=== PATIENT | male | born 1970 | race Caucasian/White ===

== ENCOUNTER 2019-12-17 08:16 | Emergency (ER) | payer OTHER, SELFPAY ==
[2019-12-17 08:32] VITALS: BP 128/60; PULSE 54; RESP 18; TEMP 36.6; O2SAT 100
--- NOTE | 2019-12-17 08:39 | ED.BURNSMOKE ---
HPI - Burn/Smoke Inhalation General Chief complaint: Burn/Smoke Inhalation Stated complaint: burn right forearm Time Seen by Provider: 12/17/19 08:40 Source: patient History of Present Illness HPI Narrative: Patient presents with a burn to his right forearm that he states he was at work 3 days ago and had grease dripped down his right forearm. Patient states he took 2 days off from work and instructed him that they would be back to work today but does not feel that he is able to go back to work today. Skin is intact no redness no drainage to area patient states he has been taking ibuprofen for pain and discomfort but has not applied any antibiotic ointment or any dressings to his forearm. Complaint: burn Onset (ago): day(s) (two) Type of Exposure: hot liquid Smoke Inhalation: none Location - Extremities: Right: forearm (22 cm burn first degree) Related Data Home Medications Medication Instructions Recorded Confirmed No Home Medications 12/17/19 12/17/19 Allergies Allergy/AdvReac Type Severity Reaction Status Date / Time No Known Allergies Allergy Verified 12/17/19 08:37 Review of Systems Review of Systems: Narrative: CONSTITUTIONAL: Denies fever, chills, or sweats. EYES: Denies visual changes, redness, or discharge. ENT: Denies rhinorrhea, congestion, sore throat, or otalgia. CARDIOVASCULAR: Denies chest pain, palpitations, or edema. RESPIRATORY: Denies cough or dyspnea. GASTROINTESTINAL: Denies abdominal pain, nausea, vomiting, or diarrhea. GENITOURINARY: Denies dysuria or hematuria. SKIN: Denies rash or itching. Burn to right forearm that he states happened at work 2 days ago when he had hot grease dripped down the inner side of his right forearm no drainage no streaking MUSCULOSKELETAL: Denies back pain, joint pain, or myalgia. NEUROLOGIC: Denies headache, numbness, or weakness. PSYCHIATRIC: Denies anxiety or depression. PMFSH Comments At time of signature, agree with nursing past medical, surgical, social and family history. There is no relevant family history pertinent to the presenting complaint Exam Narrative: Exam Narrative: GENERAL: Well-appearing, well-nourished, and in no acute distress. HEAD: Normocephalic, atraumatic. EYES: PERRLA and EOMI. ENT: Nares clear, no rhinorrhea or epistaxis. Mucous membranes moist. NECK: Supple. CHEST: Clear to auscultation. No respiratory distress. HEART: Regular rate and rhythm. No murmur heard. Normal peripheral pulses. ABDOMEN: Soft, nontender, nondistended, normal active bowel sounds. EXTREMITIES: Normal range of motion. No edema. SKIN: Warm, dry, no rash. 22 cm area first-degree burn to palmar side of right forearm no drainage no streaking NEURO: No focal deficits. Alert and oriented x3. Cumming Coma Scale Eye Opening: Spontaneous 4 Sacha Coma Scale Motor: Obeys Commands 6 Sacha Coma Scale Verbal: Oriented 5 Sacha Coma Scale Total 15 Skin: Other: 22 cm first-degree burn to palmar side of right forearm Extrem: Elbow/forearm/wrist images: 1. first degree burn 2. first degree burn Course Vital Signs Vital signs: Vital Signs Temperature 36.6 C 12/17/19 08:32 Pulse Rate 54 L 12/17/19 08:32 Respiratory Rate 18 12/17/19 08:32 Blood Pressure 128/60 12/17/19 08:32 Pulse Oximetry 100 12/17/19 08:32 Temperature 36.6 C 12/17/19 08:32 Pulse Rate 54 L 12/17/19 08:32 Respiratory Rate 18 12/17/19 08:32 Blood Pressure 128/60 12/17/19 08:32 Pulse Oximetry 100 12/17/19 08:32 Procedures Burn Care/Dressing Burn care #1: Date: 12/17/19 Time: 08:59 Location: right forarm Debridement Necessary: No (22cm first degree burn to right forearm ) Type of Dressing: Silver Sulfadiazine Neurovascular Functions Intact After Dressing Application: Yes Patient Tolerated Procedure: well (no redness , no edema, no streaking and no drainage no concern for infection) Critical Care Time Cri
[2019-12-17] MEDS: SILVER SULFADIAZINE 1% CR 50 GM JAR (*BKC) 1 APPLIC TOPICAL (08:53)
== END 2019-12-17 09:03 | disposition home or self-care (01) ==
PROVIDERS: Emergency Provider Nurse Practitioner Family
DX: T22.111A Burn of first degree of right forearm, initial encounter (principal); X10.2XXA Contact with fats and cooking oils, initial encounter; Y99.0 Civilian activity done for income or pay
CPT/HCPCS: 16000; 99213; A9270; G0463

== ENCOUNTER 2023-12-11 07:41 | Emergency (ER) | payer OTHER, SELFPAY ==
--- NOTE | ~2023-12-11 | CT_ITS ---
EXAMINATION: CT lumbar spine wo con DATE: 12/11/2023 10:21 INDICATION: Low back pain. TECHNIQUE: Computed tomography (CT) of the lumbar spine was performed without intravenous contrast. A utomated exposure control and iterative reconstruction technique were employed. The dose-length produ ct was 778.34 mGy-cm. COMPARISON: None FINDINGS: There is a 3.8 cm mass in right adrenal gland containing fat, consistent with a myelolipoma . There is 4 degrees levocurvature of lumbar spine. There is mild chronic anterior wedging of T12 and L1 vertebral bodies. There is mildly decreased disc height at L2-L3 and L4-L5 and severely decreased disc height at L5-S1. The following disc levels are specifically discussed: L1-L2: The disc does not extend beyond the endplate margin. There is severe bilateral facet joint ost eoarthritis. There is no neural foraminal stenosis. There is no central canal stenosis. L2-L3: The disc is bulging. There is severe bilateral facet joint osteoarthritis. There is mild bilat eral neural foraminal stenosis. There is mild central canal stenosis. L3-L4: The disc is bulging. There is moderate bilateral facet joint osteoarthritis. There is mild clinton ateral neural foraminal stenosis. There is mild central canal stenosis. L4-L5: The disc is bulging. There is severe bilateral facet joint osteoarthritis. There is mild bilat eral neural foraminal stenosis. There is mild central canal stenosis. L5-S1: The disc is bulging. There is moderate bilateral facet joint osteoarthritis. There is mild clinton ateral neural foraminal stenosis. There is mild central canal stenosis. IMPRESSION: 1. Severe lumbar spondylosis. Reviewed, dictated and finalized at location []
[2023-12-11 07:42] VITALS: BP 149/85; PULSE 63; RESP 16; TEMP 36.3; O2SAT 100
[2023-12-11 07:58] VITALS: BP 156/87; PULSE 76; RESP 15; TEMP 36.8; O2SAT 100
[2023-12-11 09:12] VITALS: BP 151/92; PULSE 63; RESP 15; O2SAT 97
--- NOTE | 2023-12-11 09:24 | ED.BACK ---
HPI - Back Pain/Injury General Chief Complaint: Back Pain/Injury Stated Complaint: BACK PAIN [id number] Time Seen by Provider: 12/11/23 09:11 Source: patient Mode of arrival: ambulatory Limitations: no limitations History of Present Illness HPI Narrative: This is a 53-year-old male that presents to the emergency department for mid low back pain. Ongoing over the last couple of weeks after a lifting injury. The pain radiates into the right side of his back. He has been taking Tylenol anti-inflammatories with little relief. Denies saddle anesthesia, bowel/ bladder incontinence, weakness, numbness. Related Data Allergies Allergy/AdvReac Type Severity Reaction Status Date / Time No Known Allergies Allergy Verified 12/11/23 07:42 Review of Systems Review of Systems: CONSTITUTIONAL: Denies fever SKIN: Denies rash MUSCULOSKELETAL: Reports back pain, joint pain, and myalgia. NEUROLOGIC: Denies numbness, or weakness. All systems reviewed & are unremarkable except as noted in HPI and below PMFSH Past Medical History Medical History (Updated 12/11/23 @ 12:03 by Toma Minor PA-C) No active medical problems Social History Social History (Updated 12/11/23 @ 09:26 by Toma Minor PA-C) Substance use: never Exam Narrative: GENERAL: Well-appearing, well-nourished, and in no acute distress. HEAD: Normocephalic, atraumatic. EYES: EOMI. CHEST: Clear to auscultation. No respiratory distress. No wheezes rales or rhonchi HEART: Regular rate and rhythm. No murmur heard. Normal peripheral pulses. BACK: No midline spinal tenderness. Tender to palpation of the right paraspinal musculature EXTREMITIES: Normal range of motion. No edema. Normal DP pulses. Strength equal in bilateral lower extremities (5/5) SKIN: Warm, dry, no rash. NEURO: No focal deficits. Alert and oriented x3. PSYCH: Normal mood and affect Course Course Emergency Course: Patient updated on his workup and agrees with plan of care Vital Signs Vital signs: Vital Signs Temperature 97.4 F L 12/11/23 07:42 Pulse Rate 63 12/11/23 07:42 Respiratory Rate 16 12/11/23 07:42 Blood Pressure 149/85 H 12/11/23 07:42 Pulse Oximetry 100 12/11/23 07:42 Temperature 98.3 F 12/11/23 07:58 Pulse Rate 63 12/11/23 09:12 Respiratory Rate 15 12/11/23 09:12 Blood Pressure 151/92 H 12/11/23 09:12 Pulse Oximetry 97 12/11/23 09:12 MDM - Back Pain/Injury MDM Narrative Medical decision making narrative: Patient presents to the emergency department for right sided low back pain. reports a lifting injury a couple of weeks prior. He is afebrile and nontoxic appearing. He is neurologically intact. Vitals are stable. CT lumbar spine shows severe lumbar spondylosis. Patient updated on his workup and agrees with plan of care. Instructed to have further follow-up with primary provider. He was given warnings to return to the ER Differential Diagnosis Differential diagnosis: Likely lumbar radiculopathy, sciatica and strain of lumbar region Imaging Data Radiologist's impression: ITS Impressions Lumbar Spine CT 12/11/23 10:36 IMPRESSION: 1. Severe lumbar spondylosis. Critical Care Time Critical Care Time Critical Care Time: No Discharge Plan Discharge Clinical Impression: Lumbar radiculopathy Patient Disposition: Home, Self-Care Condition: Stable Instructions: Back Pain (ED) Additional Instructions: Return to the ER if you experience weakness, numbness, bowel/bladder incontinence, or any other symptoms that are concerning to you Rest, use ice/heat, take anti-inflammatories (Aleve, Ibuprofen, Naproxen, etc) or Tylenol as needed for pain as well as muscle relaxer (Flexeril) as needed for pain. Muscle relaxers can make you drowsy, do not drive if you take this. Take steroid taper as prescribed Follow up with your primary care doctor Prescriptions: New methylprednisolone 4 mg tablets,dose pack See Rx Instructions .ROUTE .COMPLEX Qty: 21 0RF Rx Instructions: orally per package directions cyclobenzaprine 10 mg tablet 10 mg PO TID PRN (Reason: muscle spasm) Qty: 14 0RF Follow-up/Referrals: Bennett Banks MD [Physician] - PHYSICIAN,CASTING MACHINE OPERATOR [Non-Staff] -
[2023-12-11] MEDS: ACETAMINOPHEN 500 MG TABLET 1000 MG PO (09:38)
[2023-12-11] MEDS: diazePAM INJ (*CRX) 10 MG/2 ML SYRINGE 5 MG IM (09:38)
--- NOTE | 2023-12-11 10:16 | PC.NURSE ---
pt in CT
[2023-12-11 12:01] VITALS: BP 148/88; PULSE 56; RESP 13; O2SAT 97
== END 2023-12-11 12:47 | disposition home or self-care (01) ==
PROVIDERS: Emergency Provider Physician Assistant
DX: M54.16 Radiculopathy, lumbar region (principal); X50.9XXA Other and unspecified overexertion or strenuous movements or postures, initial encounter
CPT/HCPCS: 72131; 96372; 99284; A9270; J3360

== ENCOUNTER 2024-08-16 15:23 | Outpatient (CLI) | payer OTHER, SELFPAY | END 2024-08-16 15:24 | disposition home or self-care (01) | LOC: ANHGOSHLAB 15:26 | PROVIDERS: PCP Internal Medicine; Visit Provider Internal Medicine | DX: Z76.89 Persons encountering health services in other specified circumstances (principal) | CPT/HCPCS: 36415 ==